=== PATIENT | female | born 1980 | race Caucasian/White ===

== ENCOUNTER → 2019-11-19 | Outpatient (CLI) | payer BC, OTHER ==
[~2019-11-19] MED LIST: CALC-140 PO; DOCU100C37 PO; FERR325T18 PO; IBUP-1780 PO; LEVO75TA6 PO; Micronor PO; OMEP20TA33 PO; OXYC-465 PO
== END ==
LOC: CARD 08:39
PROVIDERS: ATTEND Internal Medicine
DX: R01.1 Cardiac murmur, unspecified (principal)
CPT/HCPCS: 93306

== ENCOUNTER 2021-09-19 12:38 | Outpatient (CLI) | payer BC ==
[~2021-09-19] VITALS: Ht 167.6 cm; Wt 77.1 kg
[~2021-09-19 12:38] MED LIST changes: -OXYC-465 PO; +OXYC-556 PO
== END 2021-09-19 13:04 | disposition home or self-care (01) ==
LOC: PREOP 12:38
PROVIDERS: ATTEND Surgery
DX: Z01.818 Encounter for other preprocedural examination (principal)

== ENCOUNTER 2021-09-20 11:54 | Day surgery (SDC) | payer BC ==
[~2021-09-20] VITALS: Ht 167.6 cm; Wt 77.1 kg
--- NOTE | 2021-09-20 08:10 | HISTORY AND PHYSICAL ---
DATE OF SERVICE: DATE OF ADMISSION: 09/20/2021. ATTENDING PRIMARY CARE PHYSICIAN: Elsy Odom DO. HISTORY OF PRESENT ILLNESS: The patient is a 40-year-old female who presented to [facility] with a 2-day history of right lower abdominal quadrant pain. She reports that this increased in severity over time and she thought that this could be appendicitis. A CT scan was performed, which did show a noncomplicated diverticulitis around the transverse colon. She also had a mildly elevated white count of 12,000. She was admitted and started on IV antibiotics for approximately 48 hours and did well and was discharged home. She has not had a colonoscopy up to this point in her life. Upon further questioning, she also reports that she has had a history of gastroesophageal reflux disease for many years; however, this has also been worsening and states that she does have frequent episodes of belching as well as a burning pain in the epigastric region. PAST MEDICAL HISTORY: Hypothyroid. PAST SURGICAL HISTORY: ORIF right wrist. ALLERGIES: CODEINE. MEDICATIONS: Levothyroxine 75 mcg daily, ciprofloxacin, and Flagyl b.i.d. SOCIAL HISTORY: Negative smoke and negative alcohol. FAMILY HISTORY: Noncontributory. REVIEW OF SYSTEMS: A well-nourished female, currently in no acute distress. She is not experiencing any shortness of breath or difficulty breathing. No chest pain, palpitations or diaphoresis. No nausea, vomiting with a history of pain in the right lower abdominal quadrant approximately two weeks ago; however, after treatment, this has gone away completely. She does not report any red blood per rectum nor any dark tarry stools. She also does not report any nausea or vomiting; however, does have frequent episodes of reflux with epigastric burning sensation. No hematemesis and no coffee ground emesis. No fever, chills, no recent inadvertent weight loss. All other review of systems negative. PHYSICAL EXAMINATION: CHEST: Clear. Good breath sounds bilaterally. HEART: Regular, no murmurs. EXTREMITIES: No lower extremity edema and negative Homans sign. HEENT: No scleral icterus. NECK: No cervical lymphadenopathy. ABDOMEN: Soft, nontender, and nondistended. SKIN: Warm and dry. ASSESSMENT AND PLAN: A 40-year-old female with history of uncomplicated transverse diverticulitis as well as a history of gastroesophageal reflux disease with worsening symptomatology. We will schedule her for followup colonoscopy as well as EGD. Job ID: [id number] DocumentID: [id number] Dictated Date: 09/12/2021 15:28:56 Coal Grader Date: 09/12/2021 15:36:32 Dictated By: MATY ESPINOZA MD
--- NOTE | 2021-09-20 08:33 | HISTORY AND PHYSICAL ---
DATE OF SERVICE: DATE OF ADMISSION: 09/20/2021 HISTORY OF PRESENT ILLNESS: The patient is a 40-year-old female who presented to [facility] on 08/30/2021 with a 2-day history of right-sided abdominal pain. A CT scan was performed, which was consistent with a transverse colonic diverticulitis. She also did have a slight elevation of white count at 12,000. She was admitted, placed on IV antibiotics and did slightly improve and was able to tolerate a diet and have bowel function. Upon further questioning, she reports that her last colonoscopy was in 2008 and only hemorrhoids were identified. Since that time, she states that the pain has improved. She is in need of a followup colonoscopy. She has also been having intermittent episodes of gastroesophageal reflux disease, which was initially mild; however, has worsened in the past year. PAST MEDICAL HISTORY: Hypothyroid. PAST SURGICAL HISTORY: ORIF right radius and ulna 2009. ALLERGIES: CODEINE. MEDICATIONS: Levothyroxine 75 mcg daily, omeprazole p.r.n. SOCIAL HISTORY: Negative smoke, negative alcohol. FAMILY HISTORY: Noncontributory. VITAL SIGNS: Blood pressure 128/86, weight 176.9 pounds at 5 feet 7 inches. REVIEW OF SYSTEMS: Well-nourished female currently in no acute distress. She is not experiencing any shortness of breath or difficulty breathing. No chest pain, palpitations, diaphoresis. Intermittent episodes of epigastric burning sensation as well as crampy pain. She also had pain in the right lower abdominal quadrant, which persisted for approximately two days and was admitted, placed on IV antibiotics and CT scan consistent with transverse colonic diverticulitis. No red blood per rectum, no dark tarry stools. No major issues with diarrhea nor constipation. No fever, chills, no recent inadvertent weight loss. All other review of systems negative. PHYSICAL EXAMINATION: CHEST: Clear. Good breath sounds bilaterally. HEART: Regular, no murmurs. EXTREMITIES: No lower extremity edema, negative Homans sign. HEENT: No scleral icterus. NECK: No cervical lymphadenopathy. ABDOMEN: Soft, nontender, nondistended. SKIN: Warm, dry. ASSESSMENT AND PLAN: A 40-year-old female with history of transverse colonic diverticulitis as well as worsening gastroesophageal reflux disease. She has improved with medical management and will require a followup colonoscopy to rule out any other etiology for the inflammation as well as an EGD for her worsening gastroesophageal reflux disease, which we will schedule. Job ID: [id number] DocumentID: [id number] Dictated Date: 09/18/2021 21:02:33 Senior It Business Analyst Date: 09/18/2021 23:32:33 Dictated By: MATY ESPINOZA MD
[2021-09-20] MEDS ORDERED: LACTATED RINGERS 1,000 ML IV STA (12:09)
--- NOTE | 2021-09-20 12:09 | Progress Note-Pre Operative ---
Pre-Operative Progress Note H&P Reviewed The H&P was reviewed, patient examined and no changes noted. Date Seen by Provider: Sep 20, 2021 Time Seen by Provider: 12:00 Date H&P Reviewed: Sep 20, 2021 Time H&P Reviewed: 12:00 Pre-Operative Diagnosis: hx transverse colitis. MATY ESPINOZA MD Sep 20, 2021 12:09
--- NOTE | 2021-09-20 12:10 | Discharge Inst-Surgical ---
D/C Lap Instructions-OLGA Follow Up Activity as tolerated High Fiber Diet 25g or more per day Avoid Alcohol, Caffeine, Spicy [place] and Acid foods. Drink 64 fluid oz or more of fluids per day. Symptoms to Report: Fever over 101 degree F, Nausea/Vomiting If any problems/questions: Contact your physician or go to Emergency Room MATY ESPINOZA MD Sep 20, 2021 12:10
[2021-09-20] MEDS ORDERED: LIDOCAINE JELLY 2% 6 ML SYRINGE MM PRN (12:15)
[2021-09-20] MEDS ORDERED: HURRICAINE EXT TUBE (BENZOCAINE) XX PRN (12:15)
[2021-09-20] MEDS ORDERED: ONDANSETRON 4 MG (ZOFRAN) ORAL DISSOLVE TAB PO PRN (12:15)
[2021-09-20] MEDS ORDERED: ONDANSETRON 4 MG/2 ML (SDV) Z0FRAN IVP PRN (12:15)
[2021-09-20] MEDS ORDERED: LACTATED RINGERS 1,000 ML IV ONE (12:18)
[2021-09-20 12:30] VITALS: BP 124/87
[2021-09-20] MEDS ORDERED: MIDAZOLAM 2 MG/2 ML (VERSED) VIAL ONE (13:27)
[2021-09-20] MEDS ORDERED: PROPOFOL INJECTION 50 ML IV ONE ×2 (13:27→13:44)
[2021-09-20 14:15] VITALS: BP 98/63
[2021-09-20 14:20] VITALS: BP 93/54
--- NOTE | 2021-09-20 14:20 | Anesthesia-General Post-Op ---
MAC Patient Condition Mental Status/LOC: Same as Preop Cardiovascular: Satisfactory Nausea/Vomiting: Absent Respiratory: Satisfactory Pain: Controlled Complications: Absent Post Op Complications Complications None Follow Up Care/Instructions Patient Instructions None needed. Anesthesiology Discharge Order Discharge Order Patient is doing well, no complaints, stable vital signs, no apparent adverse anesthesia problems. No complications reported per nursing. ISAAC VALLADARES CRNA Sep 20, 2021 14:20
[2021-09-20 14:25] VITALS: BP 98/57
--- NOTE | 2021-09-20 14:28 | Progress Note-Post Operative ---
Post-Operative Progess Note Surgeon (s)/Natural Resources Specialist (s) Surgeon MATY ESPINOZA MD Natural Resources Specialist: none Pre-Operative Diagnosis hx transverse colitis, GERD Post-Operative Diagnosis reflux esophagitis(grade B), small HH(2cm), mild gastritis. mild lo diverticulosis, small ulceration sigmoid colon. Procedure & Operative Findings Date of Procedure 09/20/21 Procedure Performed/Findings EGD with bx. Colonoscopy with bx. Anesthesia Type mac Estimated Blood Loss Estimated blood loss (mL): minimal Specimens/Packing Specimens Removed ge jxn, antrum, sigmoid colon MATY ESPINOZA MD Sep 20, 2021 14:28
[2021-09-20 14:55] VITALS: BP 113/78
--- NOTE | 2021-09-20 23:20 | OPERATIVE REPORT ---
DATE OF SERVICE: 09/20/2021 ATTENDING PRIMARY CARE PHYSICIAN: Dr. Elsy Odom. PREOPERATIVE DIAGNOSES: History of transverse colonic diverticulitis, gastroesophageal reflux disease. POSTOPERATIVE DIAGNOSES: Reflux esophagitis, [place] grade B, small hiatal hernia approximately 2 cm in size, mild gastritis, mild pandiverticulosis, small ulceration of sigmoid colon. PROCEDURE: EGD with biopsy, colonoscopy with biopsy. SURGEON: Maty Prakash MD ANESTHESIA: Monitored anesthesia care. ESTIMATED BLOOD LOSS: Minimal. FINDINGS: Same as postoperative diagnosis. DISPOSITION: The patient tolerated the procedure well. INDICATIONS: The patient is a 40-year-old female who presented to [facility] on 08/30/2021 with a 2-day history of right-sided abdominal pain. A CT scan was performed and was read as transverse colonic diverticulitis. She also did have a slight elevation of white count at 12,000. She was admitted, placed on IV antibiotics with improvement in her symptoms. Upon further questioning, she did report that she had a colonoscopy in 2008 and there were some mild hemorrhoids identified, however, nothing else. She also reports a history of gastroesophageal reflux disease, which was initially mild; however, has worsened in the past year. DESCRIPTION OF PROCEDURE: The patient was brought to the endoscopy suite, laid in the left lateral decubitus position. After adequate IV pain and sedative medications and monitored anesthesia care, the mouthpiece was applied. The endoscope was placed in the mouth, visualizing the pharynx and hypopharyngeal region. Vocal cords, epiglottis and vallecula identified and appeared to be normal. The endoscope was then gently intubated the esophageal opening and esophagus insufflated. The endoscope was then advanced through the first, second and third portion of esophagus at the level of the GE junction, reflux esophagitis, [place] grade B identified. No ulcers or strictures and a biopsy was taken with visualization of good hemostasis. The endoscope was then advanced in the stomach. The endoscope retroflexed, visualizing a small type 1 hiatal hernia approximately 2 cm in size. There was a mild gastritis. No ulcers, polyps, or any neoplasms and a biopsy was taken of the antrum to rule out H. pylori with visualization of good hemostasis. The endoscope was then advanced to the pylorus and the first and second portion of the duodenum, which appeared normal with no distal obstructions. The endoscope was then slowly withdrawn while taking a second look and suctioning of residual air with no additional findings. A digital rectal examination was performed, which revealed chronic stage II external and internal hemorrhoids. Normal sphincter tone was felt and there were no palpable masses. The endoscope was then intubated into the anus and rectum gently insufflated. The endoscope was then advanced through the valves of [place] of the rectum with no polyps or any neoplasms identified. Through the sigmoid colon, there was a mild diverticulosis, which eventually did continue throughout the rest of the colon consistent with a pandiverticulosis. There was a solitary ulcerative plaque identified of the sigmoid colon, which was biopsied. This may indicate some low level of inflammatory bowel disease. The endoscope was then advanced through the remainder of the descending, transverse and ascending colon to the cecum, where again a mild pandiverticulosis identified with no mucosal inflammatory changes identified. There were no polyps or any neoplasms identified as well. The endoscope was then slowly withdrawn while taking a second look and suctioning of residual air with no additional findings. The patient tolerated the procedure well. We will recommend the necessary lifestyle and dietary accommodation including small and more frequent meals, avoiding to eating at night as well as head elevation while lying supine. She also needs to avoid caffeinated beverages, spicy, greasy and acidic foods. We will also start her on Protonix 40 mg to be taken on a scheduled basis. We will also recommend a high-fiber diet with addition of a fiber supplement, which should equal or exceed 25 grams daily as well as significant amounts of water to promote soft stools on a daily basis. If she were to have another episode of abdominal pain and colitis once again identified, this would be likely more consistent with an inflammatory bowel disease, we will recommend again followup colonoscopy with biopsies as appropriate as well as a referral to a barn and property manager for long-term medical management. Job ID: [id number] DocumentID: [id number] Dictated Date: 09/20/2021 14:21:56 Gore Inserter Date: 09/20/2021 23:18:48 Dictated By: MATY PRAKASH MD
== END 2021-09-20 15:25 | disposition home or self-care (01) ==
LOC: ENDO 11:54
PROVIDERS: ATTEND Surgery
DX: K31.89 Other diseases of stomach and duodenum (principal); K21.00 Gastro-esophageal reflux disease with esophagitis, without bleeding; K29.30 Chronic superficial gastritis without bleeding; K57.30 Diverticulosis of large intestine without perforation or abscess without bleeding; K44.9 Diaphragmatic hernia without obstruction or gangrene; Z79.899 Other long term (current) drug therapy
CPT/HCPCS: 84703